=== PATIENT | female | born 1930 | race Hispanic/Latino ===

== ENCOUNTER 2017-04-30 13:39 | Emergency (ER) | payer MEDICARE, BC ==
[2017-04-30 13:42] VITALS: BMI 23.7
[2017-04-30 13:49] VITALS: BP 135/64; PULSE 76; RESP 19; TEMP 98.8; O2SAT 95
--- NOTE | 2017-04-30 14:11 | ED PDOC ---
Arrival/HPI - General Chief Complaint: Lower Extremity Problem/Injury Time Seen by Provider: 04/30/17 13:54 Historian: Patient - History of Present Illness Narrative History of Present Illness (Text): 04/30/17 14:05 86 year old female presents to the emergency department with right foot pain after mechanical fall in the shower around 05:00 this morning. Patient reports she is on Coumadin but states she did not fall or hit the ground. Patient is only complaining of foot pain. No other complaints at this time. 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) Other/Comment: c/o blurred vision left eye " My left eye was never the same after glaucoma sx" pt stated - Endocrine/Metabolic Hx Hypothyroidism: Yes - Musculoskeletal/Rheumatological Hx Falls: No - Genitourinary/Gynecological Hx Genitourinary Disorders: No (denies incontinence) Hx Reproductive Disorders: No - Psychiatric Hx Depression: No Hx Emotional Abuse: No Hx Physical Abuse: No Hx Substance Use: No - Past Surgical History Past Surgical History: No Previous - Anesthesia Hx Anesthesia: Yes Hx Anesthesia Reactions: No Hx Malignant Hyperthermia: No - Suicidal Assessment Feels Threatened In Home Enviroment: No Family/Social History - Physician Review Nursing Documentation Reviewed: Yes Family/Social History: Unknown Family HX Smoking Status: Never Smoked Hx Alcohol Use: No Hx Substance Use: No Hx Substance Use Treatment: No Allergies/Home Meds Allergies/Adverse Reactions: Allergies No Known Allergies Allergy (Verified 02/20/15 17:01) Home Medications: Home Meds Medication Instructions Recorded Confirmed Atorvastatin Calcium [Lipitor] 10 mg PO DAILY 06/04/12 02/21/15 Review of Systems - Review of Systems Eyes: absent: Vision Changes Respiratory: absent: SOB Cardiovascular: absent: Chest Pain Musculoskeletal: Other (Right foot pain) Neurological: absent: Headache, Dizziness Physical Exam Vital Signs Reviewed: Yes Vital Signs Temp Pulse Resp BP Pulse Ox 04/30/17 13:42 98.8 F 76 19 135/64 95 Temperature: Afebrile Blood Pressure: Normal Pulse: Regular Respiratory Rate: Normal Appearance: Positive for: Well-Appearing, Non-Toxic Pain Distress: Mild Mental Status: Positive for: Alert and Oriented X 3 - Systems Exam Head: Present: Atraumatic, Normocephalic Conjunctiva: Present: Normal Lower Extremity: Present: Tenderness (Right foot: Mild tenderness to medial aspect of plantar surface ) Neurological: Present: GCS=15, CN II-XII Intact, Speech Normal Skin: Present: Warm, Dry, Normal Color. No: Rashes Psychiatric: Present: Alert, Oriented x 3, Normal Insight, Normal Concentration Medical Decision Making ED Course and Treatment: Impression: 86 year old female presents to the emergency department with right foot pain after mechanical fall in the shower around 05:00 this morning. Differential Diagnosis included but are not limited to: Fall r/o fracture Plan: -- XR right foot, right ankle -- Reassess and disposition Progress Notes: - RAD Interpretation Radiology Orders: 04/30/17 14:03 ANKLE RIGHT 3 VIEWS ROUTINE [RAD] Stat FOOT RIGHT 3 VIEWS ROUTINE [RAD] Stat - Scribe Statement The provider has reviewed the documentation as recorded by the Deangelo Taylor Provider Scribe Attestation: All medical record entries made by the Scribe were at my direction and personally dictated by me. I have reviewed the chart and agree that the record accurately reflects my personal performance of the history, physical exam, medical decision making, and the department course for this patient. I have also personally directed, reviewed, and agree with the discharge instructions and disposition. Disposition/Present on Arrival - Present on Arrival Any Indicators Present on Arrival: No History of DVT/PE: No History of Uncontrolled Diabetes: No Urinary Catheter: No History of Decub. Ulcer: No History Surgical Site Infection Following: None - Disposition Have Diagnosis and Disposition been Completed?: Yes Diagnosis: Foot sprain Disposition: HOME/ ROUTINE Disposition Time: 02:00 Condition: STABLE Discharge Instructions (ExitCare): Foot Sprain (ED) Additional Instructions: follow up with your doctor, and specialist. return to er with worsening symptoms or concerns. Referrals: Fredi Corrigan DO [Staff Provider] - Follow up with primary Emeka Wei MD [Primary Care Provider] - Follow up with primary
--- NOTE | 2017-05-01 10:46 | RAD ---
PROCEDURE: Right Ankle Radiographs. HISTORY: fall COMPARISON: Correlation made with concurrent radiographs of the right foot FINDINGS: BONES: No evidence acute displaced fracture nor dislocation. Small plantar and posterior calcaneal enthesophytes. JOINTS: No significant osteoarthritis. Ankle mortise maintained. Talar dome intact SOFT TISSUES: Questionable minimal bilateral soft tissue swelling medial greater than lateral OTHER FINDINGS: None. IMPRESSION: No evidence of acute displaced fracture nor dislocation. Questionable minimal soft tissue swelling medial greater than lateral
--- NOTE | 2017-05-01 10:48 | RAD ---
PROCEDURE: Right Foot Radiographs. HISTORY: fall COMPARISON: Correlation made with concurrent radiographs of the right ankle FINDINGS: BONES: No evidence acute displaced fracture nor dislocation. Re- demonstrated are plantar and posterior small calcaneal enthesophytes. 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 There is prominence of the overlying medial soft tissues. . Mild degenerative changes of the DIP and to a lesser degree PIP joints. SOFT TISSUES: As above. Vascular calcifications are present OTHER FINDINGS: None. IMPRESSION: No evidence of acute displaced fracture nor dislocation. 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
== END 2017-04-30 15:30 | disposition home or self-care (01) ==
LOC: ED 13:39
DX: S93.601A Unspecified sprain of right foot, initial encounter (principal); W18.2XXA Fall in (into) shower or empty bathtub, initial encounter; Y93.E1 Activity, personal bathing and showering; Y92.002 Bathroom of unspecified non-institutional (private) residence as the place of occurrence of the external cause